=== PATIENT | male | born 1985 | race Caucasian/White ===

== ENCOUNTER 2016-10-05 12:29 | Emergency (ER) | payer OTHER ==
[~2016-10-05] VITALS: Ht 203.2 cm; Wt 114.7 kg
[2016-10-05 12:41] VITALS: BP 106/74
[2016-10-05] MEDS ORDERED: NEURONTIN300 MG PO (15:38)
[2016-10-05] MEDS ORDERED: ADDERALL XR 2020 MG PO (15:38)
[2016-10-05] MEDS ORDERED: VIVITROL380 MG/3.4 IM (15:39)
[2016-10-05] MEDS ORDERED: BUPROPION HCL75 MG PO (15:39)
[2016-10-05] MEDS ORDERED: REMERON30 M2 PO (15:39)
[2016-10-05 16:34] LABS: ADD MIUA? NO; BILIRUBIN NEGATIVE; BLOOD NEGATIVE; COLOR YELLOW ((YELLOW)); GLUCOSE (STRIP) NEGATIVE; KETONES NEGATIVE; LEUKOCYTES NEGATIVE; NITRITE NEGATIVE; PH, URINE 7.5 (5-8); PROTEIN (STRIP) NEGATIVE; SPECIFIC GRAVITY 1.016 (1.000-1.030); UROBILINOGEN 0.2 MG/DL (0.2-1.0)
[2016-10-07 13:27] LABS: CHLAMYDIA TRACHOMATIS NEGATIVE; NEISSERIA GONORRHOEAE NEGATIVE
== END 2016-10-05 17:13 | disposition home or self-care (01) ==
LOC: EME 12:29
PROVIDERS: Nurse Practitioner Family
DX: I86.1 Scrotal varices (principal)
CPT/HCPCS: 76870; 81003; 87491; 87591; 99281; 99284